=== PATIENT | female | born 1970 | race Caucasian/White ===

== ENCOUNTER → 2016-09-05 | Outpatient (CLI) | payer BC ==
--- NOTE | 2016-09-05 14:39 | KCIC ---
Bilateral digital screening mammograms with CAD: HISTORY Routine screening. COMPARISON Comparison is made to previous studies dated 01/06/2014 and 08/12/2011. FINDINGS Breast density category B. The skin and nipples show no abnormalities. No abnormal lymph nodes are seen in the axilla. The breast parenchyma shows scattered fibroglandular density. There are no dominant masses, suspicious calcifications or architectural distortions. IMPRESSION No evidence of malignancy. Recommend routine annual mammographic screening. This study was interpreted with the benefit of Computerized Aided Detection (CAD). Mammography is not 100% sensitive in detecting breast cancer. Therefore, a self breast exam and a clinical breast exam are very important. A negative mammogram does not negate a clinically suspicious finding and should not result in a delay in biopsying a clinically suspicious abnormality. BI-RADS category 1. Negative. This patient's information has been entered into a reminder system for the patient to be notified with the results of this examination and a target date for her next mammograms. Electronically signed by: Sade Ryan MD (Sep 05, 2016 14:37:48)
== END | disposition home or self-care (01) ==
LOC: KCIC MAMMO 12:32
PROVIDERS: ATTEND Family Medicine
DX: Z12.31 Encounter for screening mammogram for malignant neoplasm of breast (principal)
CPT/HCPCS: G0202; 77067

== ENCOUNTER → 2017-12-16 | Outpatient (CLI) | payer OTHER | END | disposition home or self-care (01) | LOC: KCIC MAMMO 10:26 | DX: Z12.31 Encounter for screening mammogram for malignant neoplasm of breast (principal) | CPT/HCPCS: 77063; 77067 ==

== ENCOUNTER → 2017-12-16 | Outpatient (CLI) | payer OTHER ==
[2017-12-16 11:34] LABS: ADD MAN DIFF? NO
[2017-12-16 11:44] LABS: BASO % 1 % (0-3); EOS # 0.2 x10^3/uL (0.0-0.7); EOS % 3 % (0-3); HEMATOCRIT 43.2 % (36.0-47.0); HEMOGLOBIN 14.6 g/dL (12.0-15.5); LYMPH # 2.7 x10^3/uL (1.0-4.8); LYMPH % 36 % (24-48); MEAN CORPUSCULAR HEMOGLOBIN 30 pg (25-35); MEAN CORPUSCULAR HGB CONC 34 g/dL (31-37); MEAN CORPUSCULAR VOLUME 88 fL (79-100); MONO # 0.4 x10^3/uL (0.0-1.1); MONO % 5 % (0-9); NEUT # 4.2 x10^3uL (1.8-7.7); NEUT % 56 % (31-73); PLATELET COUNT 238 x10^3/uL (140-400); RED BLOOD COUNT 4.93 x10^6/uL (3.50-5.40); RED CELL DISTRIBUTION WIDTH 14.1 % (11.5-14.5); WHITE BLOOD COUNT 7.6 x10^3/uL (4.0-11.0)
[2017-12-16 11:58] LABS: CHOLESTEROL 193 mg/dL (0-200); HDLC 54 mg/dL (40-60); LDLC 108 mg/dL (0-100); NON-HDL CHOLESTEROL 139 mg/dL (0-129); TRIGLYCERIDES 156 mg/dL (0-150); VLDLC 31 mg/dL (0-40)
[2017-12-16 11:59] LABS: CHOLESTEROL/HDL RATIO 3.6
[2017-12-16 12:08] LABS: THYROID STIM HORMONE (TSH) 0.701 uIU/mL (0.358-3.74)
== END | disposition home or self-care (01) ==
LOC: LAB 11:12
DX: Z01.419 Encounter for gynecological examination (general) (routine) without abnormal findings (principal)
CPT/HCPCS: 36415; 80061; 84443; 85025

== ENCOUNTER → 2018-01-25 | Outpatient (CLI) | payer OTHER ==
--- NOTE | 2018-01-25 16:00 | CARD ---
MR#: [id number] Date of Study: 01/25/2018 Ordering Physician: AGAPITO DEL TORO, Referring Physician: AGAPITO DEL TORO, Tech: Diana Mejia APPROVED REPORT EXAM: Two-dimensional and M-mode echocardiogram with Doppler and color Doppler. Other Information Quality : GoodHR: 78bpm Rhythm : NSR INDICATION Murmur 2D DIMENSIONS RVDd2.8 (2.9-3.5cm)Left Atrium(2D)3.8 (1.6-4.0cm) IVSd1.0 (0.7-1.1cm)Aortic Root(2D)2.8 (2.0-3.7cm) LVDd4.7 (3.9-5.9cm)LVOT Diameter2.1 (1.8-2.4cm) PWd1.0 (0.7-1.1cm)LVDs3.1 (2.5-4.0cm) FS (%) 34.4 %SV65.9 ml Aortic Valve AoV Peak Jamaal.195.6cm/sAoV VTI42.1cm AO Peak GR.15.3mmHgLVOT Peak Jamaal.128.1cm/s AO Mean GR.9mmHgAVA (VMAX)2.24cm2 Mitral Valve MV E Vrsiohza46.6cm/sMV DECEL HEXT830bv MV A Ujtjqlxh77.7cm/sE/A Ratio1.2 Pulmonary Valve PV Peak Xxptmjxd964.3cm/s Tricuspid Valve TR P. Yvqmifio034cz/sRAP GAMRWHLI9ohMr TR Peak Gr.54jiQfJUEB08fwUn Pulmonary Vein S1 Wfjxbsje81.1cm/sD2 Mdaexnyt56.7cm/s PVa njneotdp81dpnc LEFT VENTRICLE The left ventricle is normal size. There is normal left ventricular wall thickness. The left ventricu lar systolic function is normal. The ejection fraction is 55-60%. There is normal LV segmental wall m otion. The left ventricular diastolic function and filling is normal for age. RIGHT VENTRICLE The right ventricle is normal size. There is normal right ventricular wall thickness. The right ventr icular systolic function is normal. ATRIA The left atrium size is normal. The right atrium size is normal. The interatrial septum is intact wit h no evidence for an atrial septal defect or patent foramen ovale as noted on 2-D or Doppler imaging. AORTIC VALVE The aortic valve is normal in structure and function. Doppler and Color Flow revealed no significant aortic regurgitation. There is no significant aortic valvular stenosis. MITRAL VALVE The mitral valve is normal in structure and function. There is no mitral valve stenosis. Doppler and Color Flow revealed trace mitral regurgitation. TRICUSPID VALVE The tricuspid valve is normal in structure and function. Doppler and Color Flow revealed trace tricus pid valve regurgitation. Estimated PAP 32 mmHg. PULMONIC VALVE The pulmonary valve is normal in structure and function. Doppler and Color Flow revealed trace pulmon ic valvular regurgitation. GREAT VESSELS The aortic root is normal in size. Normal pulmonary venous flow (Doppler). The IVC is normal in size and collapses >50% with inspiration. PERICARDIAL EFFUSION There is no evidence of significant pericardial effusion. Critical Notification Critical Value: No <Conclusion> The left ventricle is normal size. The left ventricular systolic function is normal. The ejection fraction is 55-60%. There is no significant aortic valvular stenosis. Doppler and Color Flow revealed no significant aortic regurgitation. Doppler and Color Flow revealed trace mitral regurgitation. Doppler and Color Flow revealed trace tricuspid valve regurgitation. Estimated PAP 32 mmHg. Signed by : Zaheer Martinez MD Electronically Approved : 01/25/2018 15:59:34
== END | disposition home or self-care (01) ==
LOC: ECHO 12:54
PROVIDERS: ATTEND Nurse Practitioner
DX: R01.1 Cardiac murmur, unspecified (principal)
CPT/HCPCS: 93306

== ENCOUNTER → 2018-08-11 | Outpatient (CLI) | payer OTHER ==
--- NOTE | 2018-08-11 14:53 | KCIC ---
EXAM: Pelvic sonogram. HISTORY: Intermenstrual bleeding. TECHNIQUE: Transabdominal and transvaginal sonographic imaging of the pelvis was performed. COMPARISON: None. FINDINGS: The uterus measures 6.9 x 4.0 x 2.9 cm. The endometrial stripe measures 5.1 mm in thickness. The uterine parenchyma is diffusely heterogeneous. No discrete mass is seen. The ovaries are obscured on transabdominal and transvaginal images. There is a small of nonspecific pelvic free fluid. IMPRESSION: 1. Diffusely heterogeneous uterine parenchyma, without a discrete lesion such as a fibroid. 2. Normal endometrial stripe, measuring 5.1 mm in thickness. 3. Obscured ovaries. 4. Small amount of left nonspecific pelvic free fluid. Electronically signed by: Corazon Sarabia MD (08/11/2018 2:50 PM) [place] [id number]
== END | disposition home or self-care (01) ==
LOC: KCIC US 10:10
PROVIDERS: ATTEND Obstetrics & Gynecology
DX: N92.3 Ovulation bleeding (principal)
CPT/HCPCS: 76830; 76856

== ENCOUNTER → 2018-10-06 | Outpatient (CLI) | payer OTHER ==
[2018-10-06 18:11] LABS: ESTRADIOL LEVEL <5.0 pg/mL (.); FSH 4.1 mIU/mL (.); LUTEINIZING HORMONE <0.2 mIU/mL (.)
== END | disposition home or self-care (01) ==
LOC: LAB 11:03
PROVIDERS: ATTEND Obstetrics & Gynecology
DX: N92.1 Excessive and frequent menstruation with irregular cycle (principal)
CPT/HCPCS: 36415; 82670; 83001; 83002

== ENCOUNTER → 2018-11-29 | Outpatient (CLI) | payer OTHER ==
[2018-11-29 09:19] LABS: BASO % 1 % (0-3); EOS # 0.2 x10^3/uL (0.0-0.7); EOS % 2 % (0-3); HEMATOCRIT 40.6 % (36.0-47.0); HEMOGLOBIN 13.7 g/dL (12.0-15.5); LYMPH # 2.4 x10^3/uL (1.0-4.8); LYMPH % 28 % (24-48); MEAN CORPUSCULAR HEMOGLOBIN 30 pg (25-35); MEAN CORPUSCULAR HGB CONC 34 g/dL (31-37); MEAN CORPUSCULAR VOLUME 89 fL (79-100); MONO # 0.5 x10^3/uL (0.0-1.1); MONO % 5 % (0-9); NEUT # 5.6 x10^3/uL (1.8-7.7); NEUT % 64 % (31-73); PLATELET COUNT 235 x10^3/uL (140-400); RED BLOOD COUNT 4.58 x10^6/uL (3.50-5.40); RED CELL DISTRIBUTION WIDTH 14.4 % (11.5-14.5); WHITE BLOOD COUNT 8.7 x10^3/uL (4.0-11.0)
[2018-11-29 10:08] LABS: ALBUMIN 3.6 g/dL (3.4-5.0); CALCIUM 8.7 mg/dL (8.5-10.1); CREATININE 0.8 mg/dL (0.6-1.0); GFR 76.6; POTASSIUM 3.7 mmol/L (3.5-5.1); TOTAL BILIRUBIN 0.3 mg/dL (0.2-1.0); TOTAL PROTEIN 7.1 g/dL (6.4-8.2)
== END | disposition home or self-care (01) ==
LOC: LAB 06:39
PROVIDERS: ATTEND Nurse Practitioner
DX: G25.81 Restless legs syndrome (principal)
CPT/HCPCS: 36415; 80053; 83540; 84443; 85025; 85651

== ENCOUNTER → 2019-10-26 | Outpatient (CLI) | payer OTHER ==
[2019-10-26 13:08] LABS: BASO # 0.1 x10^3/uL (0.0-0.2); BASO % 1 % (0-3); EOS # 0.2 x10^3/uL (0.0-0.7); EOS % 2 % (0-3); HEMATOCRIT 42.3 % (36.0-47.0); HEMOGLOBIN 14.5 g/dL (12.0-15.5); LYMPH # 2.6 x10^3/uL (1.0-4.8); LYMPH % 26 % (24-48); MEAN CORPUSCULAR HEMOGLOBIN 30 pg (25-35); MEAN CORPUSCULAR HGB CONC 34 g/dL (31-37); MEAN CORPUSCULAR VOLUME 89 fL (79-100); MONO # 0.4 x10^3/uL (0.0-1.1); MONO % 4 % (0-9); NEUT # 6.8 x10^3/uL (1.8-7.7); NEUT % 67 % (31-73); PLATELET COUNT 241 x10^3/uL (140-400); RED BLOOD COUNT 4.78 x10^6/uL (3.50-5.40); RED CELL DISTRIBUTION WIDTH 14.3 % (11.5-14.5); WHITE BLOOD COUNT 10.1 x10^3/uL (4.0-11.0)
[2019-10-26 13:28] LABS: ALBUMIN 3.6 g/dL (3.4-5.0); CREATININE 0.9 mg/dL (0.6-1.0); GFR 66.5; POTASSIUM 3.6 mmol/L (3.5-5.1); TOTAL BILIRUBIN 0.4 mg/dL (0.2-1.0); TOTAL PROTEIN 7.2 g/dL (6.4-8.2)
[2019-10-26 13:29] LABS: CHOLESTEROL/HDL RATIO 4.4
== END ==
LOC: LAB 10:05
PROVIDERS: ATTEND Nurse Practitioner
DX: Z00.00 Encounter for general adult medical examination without abnormal findings (principal); G47.00 Insomnia, unspecified
CPT/HCPCS: 36415; 80053; 80061; 84443; 85025

== ENCOUNTER → 2020-01-10 | Outpatient (CLI) | payer OTHER ==
[2020-01-05 13:32] VITALS: BP 142/68
[~2020-01-10] MED LIST: ESCITALOPRAM OX10 MG PO; OXYC-325 PO
== END | disposition home or self-care (01) ==
LOC: LAB 12:30
PROVIDERS: ATTEND Obstetrics & Gynecology
DX: Z20.828 Contact with and (suspected) exposure to other viral communicable diseases (principal)
CPT/HCPCS: 87426; U0003

== ENCOUNTER 2020-01-12 07:31 | Day surgery (SDC) | payer OTHER ==
[~2020-01-12 07:31] MED LIST changes: +HYDROmorphone 2 MG/ML VIAL IV PRN; +LIDOCAINE 1% PF 2 ML VIAL. ID PRN; +MORPHINE SULFATE 2 MG/ML VIAL. IV PRN; +ONDANSETRON PF 4 MG/2 ML VIAL. IV PRN; -OXYC-325 PO; +PROCHLORPERAZINE 10 MG/2 ML VIAL. IV PRN; +fentaNYL PF VIAL 100 MCG/2 ML VIAL IV PRN
[2020-01-12] MEDS ORDERED: PROPOFOL 10 MG/ML (20ML) VIAL. IV ONE ×2 (07:40→09:44)
[2020-01-12] MEDS ORDERED: ROCURONIUM 50 MG/5 ML VIAL. ONE (07:40)
[2020-01-12] MEDS ORDERED: LIDOCAINE 2% PF 5 ML VIAL. ONE (07:40)
[2020-01-12] MEDS ORDERED: MIDAZOLAM HCL/PF 2 MG/2 ML VIAL. ONE (07:41)
[2020-01-12] MEDS ORDERED: fentaNYL PF VIAL 250 MCG/5 ML VIAL ONE (07:41)
[2020-01-12] MEDS ORDERED: NEOSTIGMINE METHYLSULFATE 5 MG/5 ML SYRINGE. ONE (08:00)
[2020-01-12] MEDS ORDERED: GLYCOPYRROLATE 1 MG/5 ML VIAL. ONE (08:00)
[2020-01-12] MEDS ORDERED: SCOPOLAMINE 1.5MG PATCH. TD ONE (08:00)
[2020-01-12] MEDS ORDERED: DEXAMETHASONE SOD PHOS 4 MG/ML VIAL ONE (08:01)
[2020-01-12] MEDS ORDERED: ONDANSETRON PF 4 MG/2 ML VIAL. ONE (08:01)
[2020-01-12] MEDS: IV RINGERS,LACTATED 1000ML 1,000 ML IV SCH ×2 (08:09→11:44)
[2020-01-12] MEDS ORDERED: BUPIVACAINE-EPI 0.25%-1:200000 MPF 30 ML VIAL. INJ ONE (10:00)
[2020-01-12] MEDS ORDERED: SEVOFLURANE 61 TO 120 MINUTES. IH ONE (11:09)
--- NOTE | 2020-01-12 11:42 | PDOC ---
BRIEF OPERATIVE NOTE Date: Jan 12, 2020 Pre-Op Diagnosis desires permanent sterility, menorrhagia Post-Op Diagnosis same with mild pelvic adhesive disease and endometriosis Procedure Performed laparoscopic BTL; hysteroscopy D&C with suspected uterine perforation Surgeon Dr. Babrara Welch Assembler Seat OR Anesthesiologist Dr. Vázquez Anesthesia Type: General Blood Loss 10cc IV Fluid see anesthesia notes Urine Output straight cath prior to procedure Specimens Obtained endometrial currettings Findings left sided colon adhesons, vesicles below uterus; mild adheisons of left tube and ovary; uterus sounded to 8cm initially and uterus with abundant tissue; but then on right side felt currette go further than should have so immediately addison chau and repeated hysteroscopy with suspected perforation so procedure ended and no ablation performed Complications suspected uterine perforation Operative Note [id number] BARBARA WELCH MD Jan 12, 2020 11:42
[2020-01-12] MEDS ORDERED: diphenhydrAMINE 50 MG/ML VIAL IV PRN (11:45)
[2020-01-12] MEDS ORDERED: 0.9 % SODIUM CHLORIDE 10 ML DISP.SYRIN. IV PRN (11:45)
[2020-01-12] MEDS ORDERED: SIMETHICONE 80 MG TAB.CHEW PO PRN (11:45)
[2020-01-12] MEDS ORDERED: MAG HYDROX/ALUMINUM HYD/SIMETH 30 ML ORAL.SUSP PO PRN (11:45)
[2020-01-12] MEDS ORDERED: HYDROcodone/APAP 5/325MG 1 TAB TABLET PO PRN (11:45)
[2020-01-12] MEDS ORDERED: NALOXONE 0.4 MG/ML VIAL. IV PRN (11:45)
[2020-01-12] MEDS ORDERED: CALCIUM CARBONATE 500 MG TAB.CHEW PO PRN (11:45)
[2020-01-12] MEDS ORDERED: diphenhydrAMINE HCL 25 MG CAPSULE PO PRN (11:45)
[2020-01-12] MEDS ORDERED: OXYC-325 PO (12:03)
[2020-01-12] MEDS ORDERED: oxyCODONE/APAP 5/325 1 TAB TABLET PO ONE (12:15)
[2020-01-12 12:30] VITALS: BP 167/70
--- NOTE | 2020-01-12 12:30 | OP ---
DATE OF SURGERY: 01/12/2020 PREOPERATIVE DIAGNOSES: Desires permanent sterility and menorrhagia. POSTOPERATIVE DIAGNOSES: Desires permanent sterility and menorrhagia with mild pelvic adhesive disease and endometriosis. PROCEDURE PERFORMED: Laparoscopic bilateral tubal ligation and a hysteroscopy, D and C with suspected uterine perforation. SURGEON: Juni Welch MD USED CAR LOT ATTENDANT: OR personnel. ANESTHESIA: General. ANESTHESIOLOGIST: Dr. Galdamez. ESTIMATED BLOOD LOSS: 10 mL. IV FLUIDS: Please see anesthesia notes. URINE OUTPUT: Straight catheterization prior to procedure. SPECIMEN: Endometrial curettings. FINDINGS: She had left-sided colon adhesions to the vesicles under the uterus and on the uterosacral ligaments consistent with endometriosis, mild adhesions of the left tube and ovary. She had a normal right upper quadrant. Appendix was mildly adhesed, but it was easily found and appeared not swollen and normal. Uterus sounded to 8 cm initially. It was dilated, sounded to 8 cm and then on the curetting on the right side, it felt like it went a little further than it should, so it was immediately removed. The hysteroscopy was performed again with a suspected perforation. So, the procedure was immediately ended and the NovaSure was not performed. DESCRIPTION OF PROCEDURE: This patient was taken to the operating room where general anesthesia was placed. The patient was placed in dorsal lithotomy position in Dong stirrups. The patient's abdomen and vagina were prepped and draped in the normal sterile fashion and a straight cath urine was done prior to my arrival. Upon my arrival, a timeout was performed. Once everyone agreed on the patient, site and procedure, the procedure was initiated. A bivalve speculum was placed in the patient's vagina. A single-tooth tenaculum was used to grasp the anterior lip of the cervix. She was dilated with the Remy dilators to a 15/16 and sounded to 8 to 8-1/2 cm. At this point, the Valtchev uterine manipulator was placed through the endocervical os, locked on the single tooth tenaculum and the bivalve speculum was then removed. Top gloves were discarded and changed. Attention was then turned to the abdomen where a small infraumbilical skin incision was made with the scalpel, carried down to the underlying layer of the fascia with the curved Christie clamps. The 5 mm Visiport was used to directly enter the abdominal cavity. Opening patient pressure was 3-4 mmHg. Carbon dioxide gas was used to then appropriately insufflate the abdominal cavity to maintain a pressure of 15 mmHg. The patient was placed in Trendelenburg position and a 5 mm suprapubic port was placed under direct visualization as well. I did move the camera to look at the umbilical port. It was clear and it looked great with no adhesions around it. The camera was moved back to the umbilical port. At this point, a [place] was placed through the suprapubic port and again I looked at the right upper quadrant, grossly at the bowel, the appendix. She had a thick band of colon adhesions on the left side, some mild adhesions of the left tube and ovary as well under the uterus. There was some blistery looking vesicular, clear vesicles consistent with endometriosis as well. The LigaSure was used to cauterize and cut 3 areas of the left tube in the mid ampullary area and then cut in the middle and then it was cauterized and cut deep below that making sure both sides were sealed and going down and going through and through the tube until we were in the mesosalpinx. This was done exactly the same on the right side. Pictures were taken both. So the bilateral tubal ligation was performed. The suprapubic port was removed. There was no bleeding at all. Gas was released from the umbilical port. Both port sites were closed with 4-0 nylon at the skin and injected with 10 mL of 0.25% Marcaine with epinephrine. At this point, attention was turned vaginally where the open bivalve speculum was placed back in the vagina and a small curette was placed in with the curettings. I went around the posterior left side, anterior and when I got to the right side, it felt like it went a little further but I already gotten tissue and a spoon just passed off that. I immediately put the scope back in with the suspected perforation. I did not feel like it was right to go ahead and attempt the ablation, so at this point, the procedure was ended. We did get tissue. We performed a hysteroscopy, D and C and the tubal ligation just not the NovaSure. So, the tenaculum was removed. There was no active bleeding. She was just passing clots from the uterus from the D and C and the bivalve speculum was then removed. The procedure was ended. The patient was awakened from anesthesia and is being brought to recovery room in stable condition. JUNI WELCH MD DR: KEYONA/blake JOB#: [id number] / [id number]
--- NOTE | 2020-01-20 07:09 | PATHOLOGY ---
[facility] Accession Number: [id number] . 01 Material submitted: . fallopian tube - BILATERAL FALLOPIAN TUBES. Modifiers: bilateral . 01 Clinical history: . MENORRHAGIA, DESIRES STERILITY . 02 Diagnosis: Uterus "endometrial curettage": - Abundant decidualized endometrial stroma with rare atrophic glands, areas of stromal breakdown and hemorrhage, admixed with blood. - Fragments of benign myometrium. - Fragments of benign endocervical epithelium. - Negative for hyperplasia, atypia, and malignancy. (MLK:cabrera; 01/19/2020) [facility] [place] 01/20/2020 0654 Local . 02 Electronically signed: . Keyur Back MD, Pathologist NPI- [id number] . 01 Gross description: . Received in formalin labeled "Bita Cavazos, bilateral fallopian tubes" is a 4.1 x 4.0 x 1.5 cm aggregate of bright red clotted blood material with scant pink-nur soft tissue fragments. Fallopian tube tissue is not grossly identified. The specimen is submitted entirely in cassettes A1-A5. ([facility] [place]; 01/12/2020) [facility] 01/12/2020 1715 Local . 02 Microscopic: . Immunohistochemical stain results (blocks A1 and A4): . CD138 - Negative for plasma cells. . (MLK:cabrera; 01/19/2020) . 02 Pathologist provided ICD-10: N85.9, N92.0, Z30.2 . 02 CPT . 345797, S68541 Specimen Comment: A courtesy copy of this report has been sent to [phone] Specimen Comment: [id number] Specimen Comment: Report sent to / Performed at: 01 [facility] [place] [id number], [place], [place] [id number] MD Brando Chapman MD Phone: [phone] Performed at: 02 [facility] [address] [place], [place] [id number] MD Ralf Fan MD Phone: [phone]
== END 2020-01-12 13:00 | disposition home or self-care (01) ==
LOC: SURG 07:31
PROVIDERS: ATTEND Obstetrics & Gynecology
DX: Z30.2 Encounter for sterilization (principal); N73.6 Female pelvic peritoneal adhesions (postinfective); N80.8 Other endometriosis; N92.0 Excessive and frequent menstruation with regular cycle; Z79.899 Other long term (current) drug therapy
CPT/HCPCS: 58558; 58670; 81025; A7015; J1100; J2405; J2704; J2710; J3010; J3490; J7120; 88305; 88342; J2250

== ENCOUNTER → 2020-04-19 | Outpatient (CLI) | payer OTHER ==
[~2020-04-19] MED LIST changes: -HYDROmorphone 2 MG/ML VIAL IV PRN; -LIDOCAINE 1% PF 2 ML VIAL. ID PRN; -MORPHINE SULFATE 2 MG/ML VIAL. IV PRN; -ONDANSETRON PF 4 MG/2 ML VIAL. IV PRN; +OXYC-325 PO; -PROCHLORPERAZINE 10 MG/2 ML VIAL. IV PRN; -fentaNYL PF VIAL 100 MCG/2 ML VIAL IV PRN
[2020-04-19 19:40] LABS: FSH 70.8 mIU/mL (.); LUTEINIZING HORMONE 24.9 mIU/mL (.)
[2020-04-19 20:08] LABS: ESTRADIOL LEVEL 11.9 pg/mL (.); PROGESTERONE <0.1 ng/mL (.)
== END ==
LOC: LAB 08:48
PROVIDERS: ATTEND Obstetrics & Gynecology
DX: N95.1 Menopausal and female climacteric states (principal)
CPT/HCPCS: 36415; 82627; 82670; 83001; 83002; 84144

== ENCOUNTER → 2020-05-23 | Outpatient (CLI) | payer OTHER ==
--- NOTE | 2020-05-24 09:35 | RAD ---
DATE: 05/23/2020 12:11 PM EXAM: MAMMO TAHIRA SCREENING BILATERAL HISTORY: Screening COMPARISON: 12/16/2017 Bilateral CC and MLO views of the breasts were performed. Bilateral breast tomosynthesis was performed in CC and MLO projections. This study was interpreted with the benefit of Computerized Aided Detection (CAD). FINDINGS: Breast Density: SCATTERED The breast parenchyma shows scattered fibroglandular densities. Breast parenchyma level B No suspicious masses, microcalcifications or architectural distortion is present to suggest malignancy in either breast. The visualized axillae are unremarkable. IMPRESSION: No mammographic evidence of malignancy. BI-RADS CATEGORY: 1 NEGATIVE RECOMMENDED FOLLOW-UP: 12M 12 MONTH FOLLOW-UP Annual screening mammography is recommended, unless clinically indicated sooner based on symptoms or change in physical exam. PQRS compliance statement: Patient information was entered into a reminder system with a target due date for the next mammogram. Mammography is a sensitive method for finding small breast cancers, but it does not detect them all and is not a substitute for careful clinical examination. A negative mammogram does not negate a clinically suspicious finding and should not result in delay in biopsying a clinically suspicious abnormality. "Our facility is accredited by the [employer] Mammography Program."
== END ==
LOC: MAMMO 11:55
PROVIDERS: ATTEND Family Medicine
DX: Z12.31 Encounter for screening mammogram for malignant neoplasm of breast (principal)
CPT/HCPCS: 77063; 77067

== ENCOUNTER → 2020-09-11 | Outpatient (CLI) | payer OTHER | LOC: SPEC 13:15 | PROVIDERS: ATTEND Nurse Practitioner Women's Health | DX: Z12.4 Encounter for screening for malignant neoplasm of cervix (principal); N92.0 Excessive and frequent menstruation with regular cycle | CPT/HCPCS: 88175 ==

== ENCOUNTER → 2020-09-12 | Outpatient (CLI) | payer OTHER ==
--- NOTE | 2020-09-12 17:05 | RAD ---
US PELVIS COMPLETE History: Reason: MENORRHAGIA / Spl. Instructions: / History: Comparison: August 11, 2018 Technique: Grayscale and color Doppler imaging of the pelvis was performed using transabdominal tech nique. Findings: The uterus measures 6.6 x 4.6 x 3.6 cm. Uterus has an unremarkable appearance. The endometrial stripe measures 6.9 mm within normal limits for premenopausal state. Right ovary measures 3.6 x 2.3 x 2.3 cm. Left ovary measures 3.2 x 1.5 x 1.8 cm. Normal Doppler flow to the ovaries. No adnexal masses are seen. IMPRESSION: 1. Unremarkable pelvic ultrasound. Electronically signed by: Andres Moore DO (09/12/2020 5:02 PM) [id number]
== END ==
LOC: US 09:47
PROVIDERS: ATTEND Nurse Practitioner Women's Health
DX: N92.0 Excessive and frequent menstruation with regular cycle (principal)
CPT/HCPCS: 76856

== ENCOUNTER → 2020-11-22 | Outpatient (CLI) | payer OTHER ==
[2020-11-22 07:27] LABS: BASO % 1 % (0-3); EOS # 0.2 x10^3/uL (0.0-0.7); EOS % 4 % (0-3); HEMATOCRIT 42.7 % (36.0-47.0); HEMOGLOBIN 14.2 g/dL (12.0-15.5); LYMPH # 2.5 x10^3/uL (1.0-4.8); LYMPH % 38 % (24-48); MEAN CORPUSCULAR HEMOGLOBIN 29 pg (25-35); MEAN CORPUSCULAR HGB CONC 33 g/dL (31-37); MEAN CORPUSCULAR VOLUME 87 fL (79-100); MONO # 0.5 x10^3/uL (0.0-1.1); MONO % 7 % (0-9); NEUT # 3.3 x10^3/uL (1.8-7.7); NEUT % 51 % (31-73); PLATELET COUNT 208 x10^3/uL (140-400); RED BLOOD COUNT 4.89 x10^6/uL (3.50-5.40); RED CELL DISTRIBUTION WIDTH 14.9 % (11.5-14.5); WHITE BLOOD COUNT 6.5 x10^3/uL (4.0-11.0)
[2020-11-22 07:41] LABS: ALBUMIN 3.9 g/dL (3.4-5.0); ALBUMIN/GLOBULIN RATIO 1.1 (1.0-1.7); CALCIUM 9.5 mg/dL (8.5-10.1); CREATININE 0.9 mg/dL (0.6-1.0); GFR 66.3; POTASSIUM 4.3 mmol/L (3.5-5.1); TOTAL BILIRUBIN 0.5 mg/dL (0.2-1.0); TOTAL PROTEIN 7.4 g/dL (6.4-8.2)
[2020-11-22 07:51] LABS: CHOLESTEROL/HDL RATIO 3.1
[2020-11-22 23:10] LABS: HEMOGLOBIN A1C 5.5 % (4.8-5.6)
== END ==
LOC: LAB 06:08
PROVIDERS: ATTEND Nurse Practitioner
DX: Z00.00 Encounter for general adult medical examination without abnormal findings (principal)
CPT/HCPCS: 36415; 80053; 80061; 82306; 83036; 84443; 85025

== ENCOUNTER 2021-02-14 08:49 | Day surgery (SDC) | payer OTHER ==
[~2021-02-14] VITALS: Ht 167.6 cm; Wt 89.0 kg
[~2021-02-14 08:49] MED LIST changes: +HYDROmorphone 2 MG/ML VIAL IVP PRN; +IV RINGERS,LACTATED 1000ML 1,000 ML IV SCH; +LIDOCAINE 2% PF 5 ML VIAL. ONE; +MORPHINE SULFATE 2 MG/ML INJ. IVP PRN; +PROCHLORPERAZINE 10 MG/2 ML VIAL. IVP PRN; +PROPOFOL 10 MG/ML (20ML) VIAL. IV ONE; +fentaNYL PF VIAL 100 MCG/2 ML VIAL IVP PRN
[2021-02-14] MEDS ORDERED: ZOLP12.52 PO (09:18)
[2021-02-14 09:19] VITALS: BP 144/64
[2021-02-14] MEDS ORDERED: PROPOFOL 10 MG/ML (20ML) VIAL. IV ONE (10:49)
[2021-02-14 11:05] VITALS: BP 125/78
--- NOTE | 2021-02-14 11:08 | PREOP HP ---
DATE OF SERVICE: 02/14/2021 REQUESTING PHYSICIAN: Gladys Black MD PRIMARY CARE PHYSICIAN: Gladys Black MD REASON FOR PROCEDURE: Reflux and colorectal cancer screening. HISTORY OF PRESENT ILLNESS: This is a 50-year-old female who presents today for an upper endoscopy and colonoscopy to evaluate her reflux as well as her screening colonoscopy. She admits to clearing her throat as well as some epigastric discomfort when taking supplements. She admits to daily bowel movement and denies any diarrhea. PAST MEDICAL HISTORY: Reflux. MEDICATIONS: MAR reviewed. ALLERGIES: SULFA. FAMILY MEDICAL HISTORY: Significant for colon polyps in her mother. REVIEW OF SYSTEMS: A 13-point review of systems was done and is positive as per HPI and otherwise negative. PHYSICAL EXAMINATION: VITAL SIGNS: She is afebrile. Vital signs are stable. GENERAL: She is a well-developed, well-nourished female in no apparent distress. HEENT: Her oropharynx is clear. CARDIOVASCULAR: S1, S2. LUNGS: Clear. ABDOMEN: Normoactive bowel sounds, soft, nontender, nondistended. EXTREMITIES: No edema. NEUROLOGIC: Awake, alert, oriented x 3. ASSESSMENT AND PLAN: 1. Reflux. Will undergo upper endoscopy for further evaluation. Risks and benefits including bleeding, perforation, nondiagnosis and sedation were explained. She has agreed to proceed. 2. Colon cancer screening. The risks and benefits of the colonoscopy including bleeding, perforation, nondiagnosis and sedation were explained. She has agreed to proceed. HALEY DR: Selma TID: [id number]
--- NOTE | 2021-02-15 18:11 | PATHOLOGY ---
[facility] Accession Number: [id number] . 01 Material submitted: . PART A: small bowel - SMALL BOWEL BIOPSY PART B: stomach - ANTRUM AND BODY BIOPSY PART C: esophagus - DISTAL ESOPHAGEAL BIOPSY. Modifiers: distal PART D: colon - ASCENDING COLON POLYP. Modifiers: ascending PART E: cecum - CECAL POLYP PART F: rectum - RECTAL POLYPS . 01 Clinical history: . GERD,SCREENING EGD/COLONOSCOPY . 02 Diagnosis: A. Small bowel biopsy: - No significant pathologic abnormalities. . B. Gastric biopsies, gastric antrum and gastric body: - Chronic gastritis, mild. . C. 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 . D. Colon biopsies, ascending colon polyp: - Tubular adenoma. . E. Colon biopsies, cecal polyp: - Sessile serrated polyp/adenoma. . F. Colorectal biopsies, rectal polyps: - Hyperplastic polyps/prominent mucosal folds with hyperplastic mucosal-associated lymphoid aggregate. . (JPM:bryanna; 02/15/2021) [facility] 02/15/2021 1656 Local . 02 Comment: Sections of the small bowel biopsy reveal segments of duodenal mucosa. Where best oriented, the mucosal villi show no sprue-like changes or significant inflammatory changes. . Sections of the gastric biopsy reveal segments of gastric body and gastric antral mucosa. The gastric body mucosa shows superficial congestion and mild chronic inflammation. The gastric antral mucosa shows congestion and mild chronic inflammation. A properly controlled immunoperoxidase stain for Helicobacter is negative for Helicobacter organisms. . Sections of the distal esophageal biopsy reveal segments of hyperplastic squamous esophageal mucosa, esophagogastric mucosa, and gastric mucosa showing focal moderate active chronic inflammation and intestinal metaplasia with goblet cells consistent with Vargas's change. There is no dysplasia or evidence of malignancy. The hyperplastic squamous esophageal mucosa is consistent with reflux changes. . Sections of the ascending colon biopsy reveal a tubular adenoma showing no high-grade dysplasia or evidence of malignancy. . Sections of the cecal biopsy reveal a sessile serrated polyp/adenoma showing no high-grade dysplasia or evidence of malignancy. . Sections of the rectal biopsy reveal multiple segments of hyperplastic polyp/prominent mucosal folds, one of which contains a hyperplastic mucosal-associated lymphoid aggregate. . (JPM:bryanna; 02/15/2021) . . Special stain performed: Immunoperoxidase stain for Helicobacter on B1 . 02 Electronically signed: . Ralf Fan MD, Pathologist NPI- [id number] . 01 Gross description: . A. The specimen is submitted in formalin, labeled "Bita Cavazos, small bowel biopsy". Received are 3 segments of pale nur tissue ranging in size from 0.3 to 0.5 cm in maximum dimensions. The specimen is submitted entirely in cassette A1. . B. The specimen is submitted in formalin, labeled "Bita Cavazos, antrum and body". Received are 4 segments of pale nur tissue ranging in size from 0.3 to 0.5 cm in maximum dimensions. The specimen is submitted entirely in cassette B1. . C. The specimen is submitted in formalin, labeled "Bita Cavazos, distal esophagus biopsy". Received are 3 segments of pale nur tissue ranging in size from 0.3 to 0.6 cm in maximum dimensions. The specimen is submitted entirely in cassette C1. . D. The specimen is submitted in formalin, labeled "Светлана Cavazosfer, ascending colon polyp". Received are multiple segments of pale nur tissue ranging in size from 0.3 to 0.5 cm in maximum dimensions. The specimen is submitted entirely in cassette D1. . E. The specimen is submitted in formalin, labeled "Светлана Cavazosfer, cecal polyp". Received are multiple segments of pale nur tissue ranging in size from 0.2 to 0.4 cm in maximum dimensions. The specimen is submitted entirely in cassette E1. . F. The specimen is submitted in formalin, labeled "Dirk, Bita, rectal polyp". Received are multiple segments of pale nur tissue ranging in size from 0.1 to 0.5 cm in maximum dimensions. The specimen is submitted entirely in cassette F1. ([facility]; 02/14/2021) NRI/NRI 02/14/2021 [facility]5 Local . 02 Pathologist provided ICD-10: K29.50, K20.90, K22.70, D12.2, K63.5, D12.0, K62.1 . 02 CPT . 828319, 305645, 106385, 458185, 721358, 727951, L43141 Specimen Comment: A courtesy copy of this report has been sent to [phone] Specimen Comment: [id number] Specimen Comment: Report sent to / DR VIEIRA Performed at: 01 [facility] [address], [place], [place] [id number] MD Franky Gibson MD Phone: [phone] Performed at: 02 [facility] [place] [address] [place], [place] [id number] MD Ralf Fan MD Phone: [phone]
== END 2021-02-14 11:20 | disposition home or self-care (01) ==
LOC: ENDOS 08:49
PROVIDERS: ATTEND Internal Medicine Gastroenterology
DX: Z12.11 Encounter for screening for malignant neoplasm of colon (principal); D12.2 Benign neoplasm of ascending colon; D12.0 Benign neoplasm of cecum; K29.50 Unspecified chronic gastritis without bleeding; K22.70 Barrett's esophagus without dysplasia; K31.89 Other diseases of stomach and duodenum; K63.89 Other specified diseases of intestine; K21.00 Gastro-esophageal reflux disease with esophagitis, without bleeding; F41.9 Anxiety disorder, unspecified; Z90.49 Acquired absence of other specified parts of digestive tract; Z98.51 Tubal ligation status; Z98.890 Other specified postprocedural states; Z79.899 Other long term (current) drug therapy; Z72.89 Other problems related to lifestyle; Z88.2 Allergy status to sulfonamides
CPT/HCPCS: 43239; 45380; 81025; J2704

== ENCOUNTER → 2021-07-04 | Outpatient (CLI) | payer OTHER ==
[~2021-07-04] MED LIST changes: -HYDROmorphone 2 MG/ML VIAL IVP PRN; -IV RINGERS,LACTATED 1000ML 1,000 ML IV SCH; -LIDOCAINE 2% PF 5 ML VIAL. ONE; -MORPHINE SULFATE 2 MG/ML INJ. IVP PRN; -PROCHLORPERAZINE 10 MG/2 ML VIAL. IVP PRN; -PROPOFOL 10 MG/ML (20ML) VIAL. IV ONE; +ZOLP12.52 PO; -fentaNYL PF VIAL 100 MCG/2 ML VIAL IVP PRN
== END ==
LOC: LAB 14:45
PROVIDERS: ATTEND Internal Medicine Pulmonary Disease
DX: Z20.822 Contact with and (suspected) exposure to COVID-19 (principal)
CPT/HCPCS: U0003

== ENCOUNTER → 2021-08-27 | Outpatient (CLI) | payer OTHER ==
--- NOTE | 2021-08-27 14:58 | RAD ---
BILATERAL SCREENING MAMMOGRAM History: Routine screening. Comparison: Most recently on 05/23/2020. Technique: Routine 2D and 3D tomosynthesis digital mammogram views were obtained bilaterally. Interpr etation was assisted with the use of computer-aided detection. Findings: Breast Tissue Density B : There are scattered areas of fibroglandular density. There are no dominant masses, suspicious microcalcifications, or architectural distortion. IMPRESSION: No mammographic evidence of malignancy. Recommend routine screening mammography in one year. BI-RADS category 1: Negative. Patient information is entered into the reminder system with a target due date for the next screening mammogram. "Our facility is accredited by the [employer] Mammography Program." Electronically signed by: FRANCISCO CORDERO MD (08/27/2021 2:56 PM) [id number]
== END ==
LOC: MAMMO 13:53
PROVIDERS: ATTEND Family Medicine
DX: Z12.31 Encounter for screening mammogram for malignant neoplasm of breast (principal)
CPT/HCPCS: 77063; 77067